=== PATIENT | female | born 1990 | race Caucasian/White ===

== ENCOUNTER 2016-06-04 07:34 | Inpatient (IN) | payer BC ==
[2016-06-04] VITALS (10 sets, daily range): BP systolic 106–167; RESP 18–20; TEMP 98.3; Ht 170.2 cm; Wt 89.8 kg
[~2016-06-04] VITALS: Ht 170.2 cm; Wt 89.8 kg
[2016-06-04] MEDS ORDERED: PHARMACY TO DOSE VANCOMYCIN IV SCH (07:45)
[2016-06-04] MEDS ORDERED: METOCLOPRAMIDE 10 MG/2 ML VIAL IV PUSH PRN (07:45)
[2016-06-04] MEDS ORDERED: BUTORPHANOL 1 MG/ML VIAL IV ONE (07:45)
[2016-06-04] MEDS ORDERED: PHARMACY TO DOSE GENTAMICIN IV PRN (07:45)
[2016-06-04] MEDS ORDERED: CLINDAMYCIN 900 MG in DEXTROSE 5% 50 ML IV PRN (07:45)
[2016-06-04] MEDS ORDERED: OXYTOCIN 15 UNITS/250 ML NS 250 ML IV SCH ×2 (07:45)
[2016-06-04] MEDS ORDERED: ONDANSETRON 4 MG VIAL IV PRN ×4 (07:45→21:40)
[2016-06-04] MEDS ORDERED: PROCHLORPERAZINE 10 MG/2 ML VIAL IV ONE (07:45)
[2016-06-04] MEDS ORDERED: LACT RINGERS 1,000 ML IV SCH ×2 (07:45→21:40)
[2016-06-04] MEDS ORDERED: ACETAMINOPHEN 325 MG TAB PO PRN (07:45)
[2016-06-04] MEDS ORDERED: FAMOTIDINE 20 MG TAB PO PRN (07:45)
[2016-06-04] MEDS ORDERED: ALU/MAG/SIM 30 ML UDC PO PRN (07:45)
[2016-06-04] MEDS ORDERED: FAMOTIDINE 20 MG INJ IV PRN (07:45)
[2016-06-04] MEDS ORDERED: TERBUTALINE 1 MG/ML VIAL SUBQ PRN (07:45)
[2016-06-04] MEDS ORDERED: **NOTE TO NURSE XX SCH (08:00)
[2016-06-04] MEDS ORDERED: VANCOMYCIN 1,500 MG in SODIUM CHLORIDE 0.9% 250 ML IV PRN (08:10)
[2016-06-04] MEDS ORDERED: GENTAMICIN 360 MG in SODIUM CHLORIDE 0.9% 100 ML IV PRN (08:10)
[2016-06-04] MEDS: CLINDAMYCIN 900 MG in DEXTROSE 5% 50 ML IV SCH ×2 (09:03→16:26)
[2016-06-04] MEDS ORDERED: LIDOCAINE 2% 5 ML IV ONE (09:53)
[2016-06-04] MEDS ORDERED: PROPOFOL 50ML PER ML IV ONE (09:53)
[2016-06-04] MEDS ORDERED: DIPHENHYDRAMINE 50 MG/ML VIAL IV ONE (09:53)
[2016-06-04] MEDS ORDERED: OXYTOCIN 10 UNITS/ML VIAL IV ONE (09:53)
[2016-06-04] MEDS ORDERED: PHENYLEPHRINE 10 MG/ML VIAL IV ONE (09:53)
[2016-06-04] MEDS ORDERED: BUPIVACAINE 0.25% PF 10ML EPIDURAL ONE (10:45)
[2016-06-04] MEDS ORDERED: ROPIV/FENT 0.2%-2MCG/ML 100 ML EPIDURAL ONE (17:02)
[2016-06-04] MEDS ORDERED: FENTANYL 100 MCG/2 ML AMP ONE (17:03)
[2016-06-04] MEDS ORDERED: LACT RINGERS 500 ML IV ONE (17:50)
[2016-06-04] MEDS ORDERED: FENTANYL 100 MCG/2 ML AMP EPIDURAL ONE (17:50)
[2016-06-04] MEDS ORDERED: LACT RINGERS 500 ML IV PRN (17:50)
[2016-06-04] MEDS ORDERED: ROPIV/FENT 0.2%-2MCG/ML 100 ML EPIDURAL SCH (17:50)
[2016-06-04] MEDS ORDERED: SODIUM CHLORIDE 0.9% 500 ML IV PRN (17:50)
[2016-06-04] MEDS: **ONLY ANESTEHSIA MAY ORDER OPIATES WHILE ON EPIDURAL XX SCH (20:00)
[2016-06-04] MEDS ORDERED: MORPHINE 4 MG/ML SYR IV PRN ×2 (20:50)
[2016-06-04] MEDS ORDERED: BUTORPHANOL 1 MG/ML VIAL IV PRN (20:50)
[2016-06-04] MEDS ORDERED: NALOXONE 0.4 MG/ML AMP IV PRN (20:50)
[2016-06-04] MEDS ORDERED: DILAUDID 1 MG/ML AMP IV PRN (20:50)
[2016-06-04] MEDS ORDERED: DIPHENHYDRAMINE 50 MG/ML VIAL IV PRN (20:50)
[2016-06-04] MEDS ORDERED: MORPHINE 2 MG/ML SYR IV PRN ×2 (20:50)
[2016-06-04] MEDS ORDERED: SALINE FLUSH 10 ML FLUSH PRN (20:50)
[2016-06-04] MEDS ORDERED: OXYCODONE 5 MG TAB PO PRN (20:50)
[2016-06-04] MEDS ORDERED: PROMETHAZINE 25 MG/ML VIAL IV PRN (20:50)
[2016-06-04] MEDS ORDERED: DIPHENHYDRAMINE 50 MG/ML VIAL ONE (21:08)
[2016-06-04] MEDS ORDERED: TDaP 0.5 ML VIAL IM.VACC ONE (21:40)
[2016-06-04] MEDS ORDERED: MEASLES,MUMPS,RUBELLA VAC SUBQ.VACC ONE (21:40)
[2016-06-04] MEDS: MEPERIDINE 25 MG/ML IV PRN ×2 (21:45→22:02)
[2016-06-05] VITALS (7 sets, daily range): BP systolic 114–124; RESP 18–24; TEMP 98.4–99.1
[2016-06-05] MEDS: KETOROLAC 30 MG/ML VIAL IV SCH ×4 (00:25→17:39)
[2016-06-05] MEDS: CLINDAMYCIN 900 MG in DEXTROSE 5% 50 ML IV SCH ×3 (00:25→16:25)
[2016-06-05] MEDS: OXYTOCIN 15 UNITS/250 ML NS 250 ML IV SCH ×2 (00:26→05:58)
[2016-06-05] MEDS: MISOPROSTOL 100 MCG TAB PO SCH ×4 (00:26→17:39)
[2016-06-05] MEDS: SODIUM CHLORIDE 0.9% FLUSH BAG 500 ML IV SCH (06:00)
[2016-06-05] MEDS: SALINE FLUSH 10 ML FLUSH SCH ×2 (08:00→20:00)
[2016-06-05] MEDS: **ONLY ANESTEHSIA MAY ORDER OPIATES WHILE ON EPIDURAL XX SCH ×2 (08:00→20:00)
[2016-06-05] MEDS: Ibuprofen 600 MG TAB PO SCH ×3 (11:31→23:50)
[2016-06-06 05:38] VITALS: BP_SYST 109; RESP 18; TEMP 98.2
[2016-06-06] MEDS: SODIUM CHLORIDE 0.9% FLUSH BAG 500 ML IV SCH (06:00)
[2016-06-06] MEDS: Ibuprofen 600 MG TAB PO SCH ×4 (06:02→23:42)
[2016-06-06 09:32] VITALS: BP_SYST 130; RESP 16; TEMP 97.6
[2016-06-06] MEDS: MAG HYDROX 30 ML UDC PO SCH ×2 (16:33→23:42)
[2016-06-06 17:39] VITALS: BP_SYST 116; TEMP 97.6
[2016-06-06 17:40] VITALS: RESP 20
[2016-06-07 05:32] VITALS: BP_SYST 127; RESP 16; TEMP 97.9
[2016-06-07] MEDS: Ibuprofen 600 MG TAB PO SCH (06:07)
[2016-06-07 09:26] VITALS: BP_SYST 124; TEMP 97.8
[2016-06-07 09:27] VITALS: RESP 20
[2016-06-07] MEDS: MAG HYDROX 30 ML UDC PO SCH (09:35)
[2016-06-07 10:46] VITALS: BP_SYST 124; RESP 20; TEMP 97.8
== END 2016-06-07 14:05 | disposition home or self-care (01) | DRG 766 ==
LOC: LD 07:34 → OB 06-05 13:47
PROVIDERS: ADMIT Obstetrics & Gynecology Reproductive Endocrinology; ATTEND Obstetrics & Gynecology Reproductive Endocrinology
PROC: 10D00Z1 Extraction of Products of Conception, Low, Open Approach (ICD-10-PCS; principal; 2016-06-04)
DX: O62.1 Secondary uterine inertia (principal); O13.4 Gestational [pregnancy-induced] hypertension without significant proteinuria, complicating childbirth; Z3A.39 39 weeks gestation of pregnancy; Z37.0 Single live birth
CPT/HCPCS: 80053; 82803; 85025; 86850; 86900; 86901; 88307